=== PATIENT | female | born 1940 ===

== ENCOUNTER 2024-05-17 08:41 | Day surgery (SDC) | payer MEDICARE ==
[~2024-05-17] VITALS: Ht 170.2 cm; Wt 95.4 kg
[2024-05-17 09:08] VITALS: BP 192/88; PULSE 59; RESP 18
[2024-05-17] MEDS ORDERED: FLUT1BLS3 INH (09:18)
[2024-05-17] MEDS ORDERED: CEFD300C21 PO (09:18)
[2024-05-17] MEDS ORDERED: MODA100T31 PO (09:18)
[2024-05-17] MEDS ORDERED: FLUV50TA24 PO (09:18)
[2024-05-17] MEDS ORDERED: SILD20TA14 PO (09:18)
[2024-05-17] MEDS ORDERED: LISI20TA28 PO (09:18)
[2024-05-17] MEDS ORDERED: MUPI22OI30 TOP (09:18)
[2024-05-17] MEDS ORDERED: MULT-1085 PO (09:18)
[2024-05-17] MEDS ORDERED: MIDAZolam 1 MG/ML 5ML VIAL ONE (09:45)
[2024-05-17] MEDS ORDERED: fentaNYL/PF 50MCG/1 ML 2ML syringe ONE (09:45)
[2024-05-17] MEDS ORDERED: diphenhydrAMINE 50 mg/ml inj ONE (09:45)
[2024-05-17 10:20] VITALS: BP 177/77; PULSE 60; RESP 20; O2SAT 94
[2024-05-17 10:30] VITALS: BP 172/77; PULSE 62; RESP 14; O2SAT 95
[2024-05-17 10:40] VITALS: BP 184/86; PULSE 96; RESP 19; O2SAT 96
[2024-05-17 10:50] VITALS: BP 189/79; PULSE 57; RESP 19; O2SAT 93
== END 2024-05-17 10:56 | disposition home or self-care (01) ==
LOC: GI LAB 08:41
PROVIDERS: ATTEND Internal Medicine Gastroenterology
DX: K92.1 Melena (principal); K57.30 Diverticulosis of large intestine without perforation or abscess without bleeding
CPT/HCPCS: A4620; G0121; G0500; J1200; J2250; J3010; J7030; Z7512; 45378; 99152